=== PATIENT | female | born 1990 | race Caucasian/White ===

== ENCOUNTER 2017-12-06 08:46 | Inpatient (IN) | payer OTHER ==
[2017-12-06] MEDS: LACTATED RINGER'S 1000 ML IV (11:49)
[2017-12-06] MEDS: OXYTOCIN DRIP 30 UNITS in APPROPRIATE DILUENT 1 EA IV ×2 (11:51→23:58)
[2017-12-06 12:03] LABS: HEMATOCRIT 39.3 % (36.0-47.0); HEMOGLOBIN 13.5 g/dl (12.0-15.5); MEAN CORPUSCULAR HGB CONC 34.4 g/dl (32.0-36.5); MEAN CORPUSCULAR VOLUME 90.1 fl (80.0-96.0); PLATELET COUNT, AUTOMATED 240 10^3/uL (150-450); RED BLOOD COUNT 4.36 10^6/uL (4.00-5.40); RED CELL DISTRIBUTION WIDTH 13.2 % (11.5-14.5); WHITE BLOOD COUNT 9.2 10^3/uL (4.0-10.0)
[2017-12-06] MEDS: LR 1,000 ML IV ×4 (12:13→20:46)
[2017-12-06] MEDS ORDERED: FENTANYL 2MCG/ML ROPIVACAINE 0.2% IN 0.9% NACL 200ML IVBAG As Ordered (15:04)
[2017-12-06] MEDS ORDERED: ePHEDrine SULFATE 25 MG/5 ML(5MG/ML) SYRINGE IV (16:00)
[2017-12-06] MEDS ORDERED: diphenhydrAMINE INJ 50MG/ML VIAL (J1200) IV (16:00)
[2017-12-06] MEDS ORDERED: NALOXONE INJ 0.4 MG/1 ML VIAL (J2310) IV (16:00)
[2017-12-06] MEDS: FENTANYL/ROPIVACAINE/NACL BAG 200 ML EPIDURAL (16:00)
[2017-12-06] MEDS ORDERED: EPIDURAL COMMENT XX (16:00)
[2017-12-06] MEDS ORDERED: REFRIGERATOR IV KEYS XX (16:00)
[2017-12-06] MEDS ORDERED: EPIDURAL/PCA KEYS XX (16:00)
[2017-12-06] MEDS: ONDANSETRON 4MG/2ML VIAL (J2405) IV (20:18)
[2017-12-06] MEDS: miSOPROStol 200 MCG TAB (S0191) PR (23:38)
[2017-12-06] MEDS: METHYLERGONOVINE MALEATE 0.2 MG/ML VIAL (J2210) IM (23:40)
[2017-12-07] MEDS ORDERED: MEASLES,MUMPS,RUBELLA VACCINE INJ (MMR-II) (90707) SC
[2017-12-07] MEDS ORDERED: RHOGAM 300 MCG (1500 IU) INJ (J2790) IM
[2017-12-07] MEDS ORDERED: DIBUCAINE 1% OINTMENT 30GM TOP
[2017-12-07] MEDS ORDERED: DOCUSATE SODIUM 100 MG CAP PO
[2017-12-07] MEDS: PRENATAL VITAMINS CHEWABLE TABLET PO (08:30)
[2017-12-07] MEDS: IBUPROFEN 800 MG TAB PO (10:55)
[2017-12-07] MEDS: diphenhydrAMINE INJ 50MG/ML VIAL (J1200) IV (10:56)
[2017-12-08] MEDS: ACETAMINOPHEN 500 MG TAB PO ×2 (00:40→07:49)
[2017-12-08] MEDS: LR 1,000 ML IV ×2 (02:41→05:04)
[2017-12-08] MEDS: PRENATAL VITAMINS CHEWABLE TABLET PO (07:49)
== END 2017-12-08 13:35 | disposition home or self-care (01) | DRG 775 ==
LOC: M LDO 08:46 → M OBS 12-07 01:50 → M LDI 10:43
PROVIDERS: Obstetrics & Gynecology
PROC: 10E0XZZ Delivery of Products of Conception, External Approach (ICD-10-PCS; principal; 2017-12-06)
PROC: 0KQM0ZZ Repair Perineum Muscle, Open Approach (ICD-10-PCS; 2017-12-06)
PROC: 0HQ9XZZ Repair Perineum Skin, External Approach (ICD-10-PCS; 2017-12-06)
PROC: 10907ZC Drainage of Amniotic Fluid, Therapeutic from Products of Conception, Via Natural or Artificial Opening (ICD-10-PCS; 2017-12-06)
PROC: 3E033VJ Introduction of Other Hormone into Peripheral Vein, Percutaneous Approach (ICD-10-PCS; 2017-12-06)
DX: O48.0 Post-term pregnancy (principal); Z37.0 Single live birth; Z3A.40 40 weeks gestation of pregnancy; O76 Abnormality in fetal heart rate and rhythm complicating labor and delivery; O70.0 First degree perineal laceration during delivery; O70.1 Second degree perineal laceration during delivery; O77.0 Labor and delivery complicated by meconium in amniotic fluid; O69.82X0 Labor and delivery complicated by other cord entanglement, without compression, not applicable or unspecified

== ENCOUNTER → 2018-01-26 | Outpatient (CLI) | payer OTHER | LOC: M RAD 14:59 | DX: N63.21 Unspecified lump in the left breast, upper outer quadrant (principal) | CPT/HCPCS: 76642 ==